=== PATIENT | female | born 1975 | race Caucasian/White ===

== ENCOUNTER → 2018-09-27 | Outpatient (CLI) | payer BC ==
[~2018-09-27] MED LIST: SULTRIDS PO; [UNRECOGNIZED DRUG - OTHER]
[2018-09-27 13:59] LABS: Candida species (DNA Probe) Negative (NEGATIVE); G. vaginalis (DNA Probe) Positive (NEGATIVE); T. vaginalis (DNA Probe) Negative (NEGATIVE)
[2018-09-28 15:07] LABS: HPV 16 Negative (Negative); HPV 18 Negative (Negative); HPV OTHER HR TYPES Negative (Negative)
== END | disposition home or self-care (01) ==
LOC: LAB SHORT 11:00 → LAB 11:00
PROVIDERS: Nurse Practitioner Obstetrics & Gynecology
DX: Z01.419 Encounter for gynecological examination (general) (routine) without abnormal findings (principal); N76.0 Acute vaginitis
CPT/HCPCS: 87480; 87510; 87624; 87660; G0123

== ENCOUNTER 2021-04-20 08:24 | Day surgery (SDC) | payer BC ==
[~2021-04-20] VITALS: Ht 167.6 cm; Wt 75.4 kg
[~2021-04-20 08:24] MED LIST changes: +LISI20 PO; +METO25ER PO; +NICO2 PO
--- NOTE | 2021-04-20 09:57 | NUR ---
Ambulatory in Day Surgery. History, Chart, Medications and Allergies reviewed before start of procedure. Lungs clear T/O to Auscultation. Patient confirms NPO status and agrees with scheduled surgery. Pre-Op teaching done. Pt verbalizes understanding. Patient States Post-Procedure ride home has been arranged.
--- NOTE | 2021-04-20 12:41 | NUR ---
Dressing to procedure site clean, dry, intact with no visible drainage, swelling, erythema or bruising noted. Discharge instructions reviewed with patient. Patient verbalizes understanding. Copy given to patient to take home. PT INSTRUCTED HOW TO EMPTY AND CARE FOR MERA DRAIN, SENT HOME WITH SHEET TO RECORD DRAINAGE
--- NOTE | 2021-04-20 12:42 | NUR ---
Discharged via wheelchair to private car for ride home.
== END 2021-04-20 12:44 | disposition home or self-care (01) ==
LOC: ORSCMMR 08:24 → ORD 10:00 → ORSCMMR 10:00
PROVIDERS: Surgery
PROC: 07B50ZX Excision of Right Axillary Lymphatic, Open Approach, Diagnostic (ICD-10-PCS; principal; 2021-04-20 10:00)
DX: C50.811 Malignant neoplasm of overlapping sites of right female breast (principal); C77.3 Secondary and unspecified malignant neoplasm of axilla and upper limb lymph nodes; I10 Essential (primary) hypertension; F17.210 Nicotine dependence, cigarettes, uncomplicated; Z79.899 Other long term (current) drug therapy
CPT/HCPCS: 88307; J0690; J1100; J1885; J2250; J2405; J2704; J3010; J7120

== ENCOUNTER 2021-05-26 07:12 | Day surgery (SDC) | payer BC ==
[~2021-05-26] VITALS: Ht 167.6 cm; Wt 77.4 kg
[~2021-05-26 07:12] MED LIST changes: +NICO2
--- NOTE | 2021-05-26 07:38 | NUR ---
PATIENT CONFIRMS HER LAST NAME ON HER DRIVERS LICENSE IS PETTIBONE, HOWEVER SHE IS IN THE PROCESS OF CHANGING IT TO ANDREW.
--- NOTE | 2021-05-26 08:32 | NUR ---
Ambulatory in Day Surgery Surgical site prepped with 2% Chlorhexidine cloth wipe. History, Chart, Medications and Allergies reviewed before start of procedure.Lungs clear T/O to Auscultation. Patient confirms NPO status and agrees with scheduled surgery. Patient confirms NPO status and agrees with scheduled surgery. Pre-Op teaching done. Pt verbalizes understanding. Patient States Post-Procedure ride home has been arranged. Patient reports completing Chlorhexadine shower X2 prior to admission to hospital.
[2021-05-26 08:38] LABS: Alanine Aminotransfer (ALT/SGP 34 U/L (12-78); Albumin, Blood 3.5 g/dL (3.4-5.0); Albumin/Globulin Ratio 0.9 (0.8-1.8); Alk Phos 99 U/L (50-136); Anion Gap 8 mmol/L (6-16); Aspartate Aminotrans (AST/SGOT 24 U/L (12-37); Bilirubin, Total 0.6 mg/dL (0.1-1.0); Blood Urea Nitrogen 14 mg/dL (8-24); Bun/Creatinine Ratio 21.5 (12.0-20.0); CO2, Blood 23 mmol/L (21-32); Calcium, Blood 9.4 mg/dL (8.5-10.1); Chloride, Blood 110 mmol/L (98-108); Creatinine, Blood 0.65 mg/dL (0.40-1.00); Globulin, Blood 3.8 g/dL (2.2-4.0); Glomerular Filtration Rate >60 (60-); Glucose, Blood 90 mg/dL (70-99); Potassium, Blood 5.1 mmol/L (3.5-5.5); Sodium, Blood 141 mmol/L (136-145); Total Protein, Blood 7.3 g/dL (6.4-8.2)
--- NOTE | 2021-05-26 09:59 | NUR ---
ENTERED INTO STEPDOWN STATUS WHILE IN PACU DUE TO DELAY FROM XRAY. PT VSS, AWKAE, ALERT. NO PAIN, NO NAUSEA. NO BLEEDING NOTED. NO SWELLING TO LEFT UPPER CHEST.
--- NOTE | 2021-05-26 10:11 | NUR ---
PT DRESSING SELF. NO C/O DIZZINESS OR LIGHTHEADEDNESS UPON STANDING. PT HAS TOLERATED PO INTAKE WITHOUT DIFFICULTY.
--- NOTE | 2021-05-26 10:19 | NUR ---
IV DC TIP INTACT AT 1015. TRANSFERRED CARE TO MATTI MCDOWELL FOR DC HOME.
== END 2021-05-26 22:57 | disposition home or self-care (01) ==
LOC: ORSCMMR 07:12 → ORD 08:30 → ORSCMMR 08:30
PROVIDERS: Surgery
PROC: 05HN33Z Insertion of Infusion Device into Left Internal Jugular Vein, Percutaneous Approach (ICD-10-PCS; principal; 2021-05-26 08:30)
PROC: B544ZZA Ultrasonography of Left Jugular Veins, Guidance (ICD-10-PCS; principal; 2021-05-26 08:30)
DX: C50.811 Malignant neoplasm of overlapping sites of right female breast (principal); C77.3 Secondary and unspecified malignant neoplasm of axilla and upper limb lymph nodes; I10 Essential (primary) hypertension; F17.210 Nicotine dependence, cigarettes, uncomplicated; Z79.899 Other long term (current) drug therapy
CPT/HCPCS: 77001; 80053; C1788; J0690; J1100; J1642; J1885; J2405; J2704; J3010; J7120

== ENCOUNTER 2022-01-14 12:52 | Day surgery (SDC) | payer BC ==
[~2022-01-14] VITALS: Ht 167.6 cm; Wt 71.4 kg
--- NOTE | 2022-01-14 13:33 | NUR ---
01/14/22 1333 Simona Vaughan AT BEDSIDE
--- NOTE | 2022-01-14 14:57 | NUR ---
01/14/22 1457 Nika Melo N MERRY AREA & THIGHS PREPPED W/ BETADINE SOLUTION BY MATTI ASHBY. ABDOMINAL AREA PREPPED W/ DURAPREP BY MATTI GIL. BUPIVACAINE 0.5% 50 MLS MIXED W/ EPI 0.25 ML PER ORDER TO MAKE BUPIVACAINE 0.5% 1:200,000 FOR INJECTION AT OPSITE. DOSE MIXED, VERIFIED, & DIVIDED IN OR BY RN.
== END 2022-01-14 16:15 | disposition home or self-care (01) ==
LOC: ORSCSDS 12:52
PROVIDERS: Obstetrics & Gynecology
PROC: 0UT74ZZ Resection of Bilateral Fallopian Tubes, Percutaneous Endoscopic Approach (ICD-10-PCS; principal; 2022-01-14 14:00)
PROC: 0UT24ZZ Resection of Bilateral Ovaries, Percutaneous Endoscopic Approach (ICD-10-PCS; principal; 2022-01-14 14:00)
DX: C50.919 Malignant neoplasm of unspecified site of unspecified female breast (principal); C77.3 Secondary and unspecified malignant neoplasm of axilla and upper limb lymph nodes; Z17.0 Estrogen receptor positive status [ER+]; N83.292 Other ovarian cyst, left side; N83.291 Other ovarian cyst, right side; F17.210 Nicotine dependence, cigarettes, uncomplicated; I10 Essential (primary) hypertension; Z79.899 Other long term (current) drug therapy
CPT/HCPCS: 88305; J1100; J1885; J2250; J2405; J2704; J3010; J7120